=== PATIENT | female | born 1975 | race Caucasian/White ===

== ENCOUNTER 2022-05-12 07:21 | Outpatient (CLI) | payer OTHER, SELFPAY ==
--- NOTE | 2022-05-12 07:15 | CRLHL7_ITS ---
For Patients: As a result of the Century Cures Act, medical imaging exams and procedure reports are released immediately into your electronic medical record. You may view this report before your referring provider. If you have questions, please contact your health care provider. BILATERAL BREAST MRI WITHOUT AND WITH GADOLINIUM, 05/12/2022 CLINICAL HISTORY: This is a 45-year-old female who carries the BRCA 1 gene mutation. Family history of breast cancer in her maternal aunt and maternal uncles. Maternal aunt has ovarian cancer. INDICATION FOR BREAST MRI: Screening breast MRI in this high-risk woman. COMPARISON STUDIES: Mammogram 08/20/2021 and MRI 01/01/2021. CONTRAST: 15 cc Dotarem. TECHNIQUE: The patient was positioned prone using a breast coil. Multiple imaging sequences were obtained using 1-1.5 mm thick slices with no gap. The image sequences include T2-weighted STIR in the axial plane, T1-weighted nonfat-saturated gradient echo in the axial plane, pre- and post-contrast T1-weighted FLASH 3D with fat suppression in the axial plane, and T1-weighted FLASH high-resolution 3D with fat suppression in the sagittal plane. Image post-processing was performed on a [employer] workstation. Complex 3D rendering including maximum intensity projections (MIPS) and volumetric renderings were obtained to optimize visualization of the extent of pathology and relationship to the nipple, skin, and chest wall. This aids in determining feasibility of breast conservation surgery. Subtraction, multiplanar reconstruction, mean curve determination, and angiogenesis mapping were also performed. The study was technically adequate. FINDINGS: Breast Density: Heterogeneous fibroglandular tissue. Breast Background Enhancement: Moderate RIGHT Breast/ LEFT Breast: A few scattered cysts. No suspicious mass or mass enhancement in either breast. Lymph Nodes: No abnormal axillary lymph nodes or internal mammary lymph nodes. IMPRESSIONS AND RECOMMENDATIONS: No MRI findings for malignancy in either breast. No morphologically abnormal axillary lymph nodes. Recommend continuing with yearly screening mammography alternating six-month intervals with the screening MRIs. BI-RADS: BI-RADS Category 2: Benign Ashley Green M.D. Diagnostic/Breast Radiologist [email or web address] Transcribed: 9:50 a.m. JR/Dictated by: Ashley Green MD @ 05/13/2022 9:43:00 AM (Electronically Signed)
== END 2022-05-12 07:22 | disposition home or self-care (01) ==
LOC: MRI 07:21
PROVIDERS: PCP Family Medicine; Visit Provider Surgery
DX: Z12.39 Encounter for other screening for malignant neoplasm of breast (principal); Z15.01 Genetic susceptibility to malignant neoplasm of breast; Z15.09 Genetic susceptibility to other malignant neoplasm; Z80.3 Family history of malignant neoplasm of breast; Z80.41 Family history of malignant neoplasm of ovary
CPT/HCPCS: 77049; A9575

== ENCOUNTER 2022-12-11 07:56 | Outpatient (CLI) | payer OTHER, SELFPAY ==
--- NOTE | 2022-12-11 08:15 | CRLHL7_ITS ---
For Patients: As a result of the Century Cures Act, medical imaging exams and procedure reports are released immediately into your electronic medical record. You may view this report before your referring provider. If you have questions, please contact your health care provider. BILATERAL SCREENING MAMMOGRAM WITH COMPUTER-AIDED DETECTION AND TOMOSYNTHESIS TECHNIQUE: CC and MLO views were obtained. These mammographic images have been obtained using full-field digital technique. These mammographic images were interpreted with the benefit of computer-aided detection. Breast Tomosynthesis was used in this interpretation. COMPARISON FILM: 08/20/21, 04/11/20, 03/09/19. FINDINGS: The breasts are extremely dense, which lowers the sensitivity of mammography IMPRESSION: There is no radiographic evidence for malignancy. ASSESSMENT: BI-RADS Category 1: Negative RECOMMENDATION: Routine screening mammogram in 1 year. A lay language report of this examination will be provided to the patient. Woodrow Higgins M.D. Diagnostic Radiologist [email or web address] Transcribed: 3:32 pm DW/Dictated by: Woodrow Higgins MD @ 12/11/2022 12:25:00 PM (Electronically Signed)
== END 2022-12-11 07:57 | disposition home or self-care (01) ==
LOC: MAMMO 07:57
PROVIDERS: PCP Family Medicine; Visit Provider Family Medicine
DX: Z12.31 Encounter for screening mammogram for malignant neoplasm of breast (principal); R92.2 Inconclusive mammogram
CPT/HCPCS: 77063; 77067

== ENCOUNTER 2023-08-20 11:55 | Outpatient (CLI) | payer OTHER, SELFPAY ==
--- NOTE | 2023-08-20 13:33 | W.ANESCHARGE ---
Anesthesia Charges Start Date/Time Anesthesia Start Date: 08/20/23 Anesthesia Start Time: 12:42 Stop Date/Time Anesthesia Stop Date: 08/20/23 Anesthesia Stop Time: 13:30
== END 2023-08-20 11:56 | disposition home or self-care (01) ==
LOC: OP CLINIC 11:56
PROVIDERS: PCP Family Medicine; Visit Provider Surgery
DX: Z12.11 Encounter for screening for malignant neoplasm of colon (principal); K63.5 Polyp of colon
CPT/HCPCS: 00811; 45381; 45385; 88305; J2405; J2704

== ENCOUNTER 2025-03-23 16:31 | Outpatient (CLI) | payer BC, SELFPAY | END 2025-03-23 16:32 | disposition home or self-care (01) | PROVIDERS: PCP Family Medicine; Visit Provider Physician Assistant Surgical | DX: T81.49XA Infection following a procedure, other surgical site, initial encounter (principal); L03.311 Cellulitis of abdominal wall; B95.7 Other staphylococcus as the cause of diseases classified elsewhere | CPT/HCPCS: 87070; 87186 ==

== ENCOUNTER 2025-05-22 16:04 | Outpatient (CLI) | payer BC, SELFPAY | END 2025-05-22 16:05 | disposition home or self-care (01) | PROVIDERS: PCP Family Medicine; Visit Provider Family Medicine | DX: R53.83 Other fatigue (principal); Z13.9 Encounter for screening, unspecified | CPT/HCPCS: 80048; 80061; 82306; 84443; 85025 ==

== ENCOUNTER 2025-08-06 12:14 | Outpatient (CLI) | payer BC, SELFPAY ==
--- NOTE | 2025-08-06 13:13 | P.ANES_ITS ---
Anesthesia Charges Start Date/Time Anesthesia Start Date: 08/06/25 Anesthesia Start Time: 12:47 Stop Date/Time Anesthesia Stop Date: 08/06/25 Anesthesia Stop Time: 13:11 Coding CPT Codes CPT Codes: ZACKERY LWR INTST NDSC NOS - [id number] ([id number]) P2 - PATIENT W/MILD SYST DISEASE, QK - DREDGE RUNNER 2-4 CNCRNT ANES PROC, QX - REHEATER HELPER SVC W/ MD MED DIRECTION
--- NOTE | 2025-08-06 13:13 | W.ANESCHARGE ---
Anesthesia Charges Start Date/Time Anesthesia Start Date: 08/06/25 Anesthesia Start Time: 12:47 Stop Date/Time Anesthesia Stop Date: 08/06/25 Anesthesia Stop Time: 13:11 Coding CPT Codes CPT Codes: ZAKCERY LWR INTST NDSC NOS - [id number] ([id number]) P2 - PATIENT W/MILD SYST DISEASE, QK - MEDICAL CONSULTANT 2-4 CNCRNT ANES PROC, QX - SAS ANALYST SVC W/ MD MED DIRECTION
--- NOTE | 2025-08-06 13:24 | P.ANES_ITS ---
Anesthesia Charges Start Date/Time Anesthesia Start Date: 08/06/25 Anesthesia Start Time: 12:47 Stop Date/Time Anesthesia Stop Date: 08/06/25 Anesthesia Stop Time: 13:11 Coding CPT Codes CPT Codes: ZACKERY LWR INTST NDSC NOS - [id number] ([id number]) P2 - PATIENT W/MILD SYST DISEASE, QK - MACHINE DESIGNER 2-4 CNCRNT ANES PROC, QX - WARP CLAMPER SVC W/ MD MED DIRECTION
--- NOTE | 2025-08-06 13:24 | W.ANESCHARGE ---
Anesthesia Charges Start Date/Time Anesthesia Start Date: 08/06/25 Anesthesia Start Time: 12:47 Stop Date/Time Anesthesia Stop Date: 08/06/25 Anesthesia Stop Time: 13:11 Coding CPT Codes CPT Codes: ZACKERY LWR INTST NDSC NOS - [id number] ([id number]) P2 - PATIENT W/MILD SYST DISEASE, QK - FARM GENERAL MANAGER 2-4 CNCRNT ANES PROC, QX - MENTALLY RETARDED TEACHER SVC W/ MD MED DIRECTION
== END 2025-08-06 12:15 | disposition home or self-care (01) ==
LOC: OP CLINIC 12:15
PROVIDERS: PCP Family Medicine; Visit Provider Internal Medicine
DX: D12.3 Benign neoplasm of transverse colon (principal); Z86.0100 Personal history of colon polyps, unspecified
CPT/HCPCS: 00811; 45380; J2405; J2704